=== PATIENT | male | born 1975 | race Caucasian/White ===

== ENCOUNTER 2017-02-28 20:43 | Emergency (ER) | payer OTHER ==
[~2017-02-28] VITALS: Ht 175.3 cm; Wt 84.8 kg
[2017-02-28 20:47] VITALS: TEMP 36.9; Ht 175.3 cm; Wt 84.8 kg
[2017-02-28] MEDS ORDERED: SULF800T23 PO (21:08)
[2017-02-28] MEDS ORDERED: CLIN150C PO (21:08)
[2017-02-28] MEDS ORDERED: SODIUM CHLORIDE 0.9% 1000ML 1,000 ML IV STA (21:14)
[2017-02-28] MEDS ORDERED: LIDOCAINE/EPINEPHRINE 1% 20 ML VIAL INFIL ONE (21:15)
--- NOTE | 2017-02-28 21:32 | EMERGENCY ROOM VISIT NOTE ---
History First contact with patient: 20:55 Chief Complaint: BITE Stated Complaint: SPIDER BITE R LEG History of Present Illness The patient is a 41 year old male who presents to the Emergency Room from [facility] with complaints of right thigh redness, swelling, and pain. He reports the pain is constant, burning, 8/10. He states he has not been given any medications for pain. He states this started approximately 5 days ago as 2 bumps that look like pimples, and has been progressively worsening and this evening the area started to drain pus. Patient states that he was started on antibiotics by the [facility] medical staff yesterday, clindamycin and Bactrim, of which he has had 3 doses so far with no improvement. Patient denies any known spider bite to the area, but states there was a large, hairy spider in his cell that he killed a few days ago. Patient denies any previous history of skin infections, he is a former smoker, and he denies history of IV drug abuse. He does report that he has noticed several other red, painful bumps elsewhere on his body, 2 on his right knee, and a few on his arms. He denies any fevers or chills, headache, nausea or vomiting, chest pain, shortness of breath, abdominal pain, back pain, diarrhea or constipation, blood in his stool, urinary symptoms, swollen lymph nodes. Review of Systems A complete 10 point review of systems was reviewed with the patient with pertinent positives and negatives as per history of present illness. All else were negative. Social History Smoking Status: Former Smoker Current/Historical Medications Scheduled Cephalexin Monohydrate (Keflex), 500 MG PO QID Clindamycin Hcl (Cleocin), 300 MG PO DAILY Sulfa/Trimethoprim (Bactrim Ds 800MG/160MG), 1 TAB PO BID Physical Exam Vital Signs Date Time Temp Pulse Resp B/P (MAP) Pulse Ox O2 Delivery O2 Flow Rate FiO2 03/01/17 00:34 72 16 111/58 96 Room Air 02/28/17 22:50 77 16 118/87 98 Room Air 02/28/17 20:47 36.9 92 18 130/93 100 Room Air Physical Exam CONSTITUTIONAL: No acute distress. Mildly dehydrated, but otherwise well appearing and well nourished. Alert and oriented X 4 with normal affect. HEENT: Normocephalic, atraumatic. Pupils equal, round and reactive to light, EOMI. TMs normal. Pharynx normal. Tacky mucous membranes. NECK: Supple, full active range of motion without discomfort. RESPIRATORY: Clear to auscultation bilaterally with no wheezing, crackles, rhonchi or stridor. Equal expansion bilaterally. CARDIOVASCULAR: Regular rate and rhythm with no murmurs, rubs or gallops. Normal peripheral perfusion. No edema. GASTROINTESTINAL: Soft, nontender, nondistended. Bowel sounds present in all quadrants. MUSCULOSKELETAL: Full range of motion of all joints without discomfort. INTEGUMENTARY: There is a cellulitic area noted on the right anterior and lateral thigh measuring approximately 20 cm in diameter, indurated, erythematous , hot to touch, tender to palpation, with a central area of fluctuance and another adjacent area with scabbing. No palpable crepitus. No drainage noted. There are additional swollen, erythematous areas over the right knee and right forearm with scabs. Again, no drainage noted. NEUROLOGIC: Cranial nerves II-XII grossly intact. No focal neurologic deficits noted. Medical Decision & Procedures ER Provider Diagnostic Interpretation: R KNEE 1 OR 2 VIEWS ROUTINE, R FEMUR 2 VIEWS ROUTINE HISTORY: 41 years-old Male cellulitis acute redness and swelling of the right knee and thigh. Acute cellulitis. COMPARISON: None available TECHNIQUE: 2 views of the right knee and 2 views of the right femur FINDINGS: KNEE: Minimal marginal spurring of the patellofemoral joint and medial compartments. No acute fracture or dislocation. Suspected small joint effusion. Moderate soft tissue swelling about the knee, greatest anteromedially. No opaque foreign body. FEMUR: No acute fracture, dislocation or significant degenerative changes. Probable vascular calcifications within the region of the right scrotum. There is moderate soft tissue swelling about the thigh, greatest laterally. No opaque foreign body. No soft tissue gas. IMPRESSION: 1. Moderate soft tissue swelling about the knee and thigh, greatest anteromedially. No opaque foreign body or soft tissue gas identified. 2. No acute fracture or dislocation. Laboratory Results 02/28/17 21:45 Red Blood Count 4.70, Mean Corpuscular Volume 88.5, Mean Corpuscular Hemoglobin 30.4, Mean Corpuscular Hemoglobin Concent 34.4, Mean Platelet Volume 11.0, Neutrophils (%) (Auto) 70.3, Lymphocytes (%) (Auto) 21.9, Monocytes (%) (Auto) 5.2, Eosinophils (%) (Auto) 2.0, Basophils (%) (Auto) 0.3, Neutrophils # (Auto) 8.17, Lymphocytes # (Auto) 2.54, Monocytes # (Auto) 0.60, Eosinophils # (Auto) 0.23, Basophils # (Auto) 0.03 02/28/17 21:45 Test 02/28/17 21:45 White Blood Count 11.61 K/uL (4.8-10.8) Red Blood Count 4.70 M/uL (4.7-6.1) Hemoglobin 14.3 g/dL (14.0-18.0) Hematocrit 41.6 % (42-52) Mean Corpuscular Volume 88.5 fL (80-100) Mean Corpuscular Hemoglobin 30.4 pg (25-34) Mean Corpuscular Hemoglobin Concent 34.4 g/dl (32-36) Platelet Count 197 K/uL (130-400) Mean Platelet Volume 11.0 fL (7.4-10.4) Neutrophils (%) (Auto) 70.3 % Lymphocytes (%) (Auto) 21.9 % Monocytes (%) (Auto) 5.2 % Eosinophils (%) (Auto) 2.0 % Basophils (%) (Auto) 0.3 % Neutrophils # (Auto) 8.17 K/uL (1.4-6.5) Lymphocytes # (Auto) 2.54 K/uL (1.2-3.4) Monocytes # (Auto) 0.60 K/uL (0.11-0.59) Eosinophils # (Auto) 0.23 K/uL (0-0.5) Basophils # (Auto) 0.03 K/uL (0-0.2) RDW Standard Deviation 40.9 fL (36.4-46.3) RDW Coefficient of Variation 12.7 % (11.5-14.5) Immature Granulocyte % (Auto) 0.3 % Immature Granulocyte # (Auto) 0.04 K/uL (0.00-0.02) Anion Gap 8.0 mmol/L (3-11) Est Creatinine Clear Calc Drug Dose 88.6 ml/min Estimated GFR () 95.4 Estimated GFR (Non- 82.3 BUN/Creatinine Ratio 10.2 (10-20) Lactic Acid Level 1.7 mmol/L (0.4-2.0) Calcium Level 9.3 mg/dl (8.5-10.1) Total Bilirubin 0.3 mg/dl (0.2-1) Direct Bilirubin < 0.1 mg/dl (0-0.2) Aspartate Amino Transf (AST/SGOT) 14 U/L (15-37) Alanine Aminotransferase (ALT/SGPT) 30 U/L (12-78) Alkaline Phosphatase 83 U/L (45-117) Total Protein 8.5 gm/dl (6.4-8.2) Albumin 4.1 gm/dl (3.4-5.0) Medications Administered Medications (Trade) Dose Ordered Sig/Sarah Route Start Time Stop Time Status Last Admin Dose Admin Sodium Chloride 1,000 ml @ 999 mls/hr Q1H1M STAT IV 02/28/17 21:14 02/28/17 22:14 DC 02/28/17 21:14 999 MLS/HR Morphine Sulfate (MoRPHine SULFATE INJ) 4 mg NOW STAT IV 02/28/17 23:07 02/28/17 23:08 DC 02/28/17 23:21 4 MG Ceftriaxone Sodium (Rocephin Inj) 1 gm NOW STAT IV 02/28/17 23:44 02/28/17 23:47 DC 02/28/17 23:59 1 GM Cephalexin Monohydrate (Keflex 500MG Home Pack) 1 homepack NOW ONCE PO 02/28/17 23:45 02/28/17 23:47 DC 02/28/17 23:59 1 HOMEPACK Trimethoprim/ Sulfamethoxazole (Septra Ds 800/ 160MG Tab) 1 tab NOW STAT PO 02/28/17 23:44 02/28/17 23:47 DC 02/28/17 23:59 1 TAB Procedure I obtained verbal consent from the patient to perform the procedure. The area was cleansed using sterile saline and Betadine. The area was anesthetized using 1% lidocaine with epinephrine. After appropriate anesthesia was achieved , and utilizing sterile technique, the abscess cavity was incised with a number 11 scalpel blade. A moderate amount of purulent, bloody material drained and more was expressed. A wound culture was collected and sent to the lab. The abscess cavity was further probed with hemostats, with additional purulent drainage expressed. The wound was irrigated copiously with sterile saline under pressure. Packing with iodoform gauze was placed within the wound, bacitracin and a sterile gauze dressing was applied. Hemostasis was achieved. Patient tolerated the procedure well with no known complications. Medical Decision CC: Patient presenting with complaint of right thigh cellulitis Interpretation of Labs: Mild leukocytosis with left shift, no anemia, no significant electrolyte abnormalities, normal renal function, normal liver enzymes, normal lactic acid level. Differential Diagnosis: Includes, but not limited to abscess, cellulitis, spider bite, necrotizing fasciitis, sepsis/bacteremia, dehydration, among others. Medication Reconciliation: I attest that I have personally reviewed the patient' s current medication list. Vital signs review: I reviewed the patient's vital signs and interpret them as follows: T: Afebrile; BP: Hypertensive; HR: Mildly tachycardic; RR: Within normal limits; Pulse Ox: Within normal limits on room air. Blood pressure screening: The patient was found to have an elevated blood pressure, this improved after treatment and was felt to be situational secondary to pain. Summary: Patient was evaluated at bedside, history of physical exam performed. Patient is alert and oriented, in no acute distress but does appear to be in some pain. He is handcuffed to the stretcher with 2 guards on duty. Patient complains of 8/10 pain and does appear uncomfortable, but does not appear to have pain out of proportion to his exam findings. There is a cellulitic area on the right anterior/lateral thigh, erythematous, hot to touch, tender to palpation, with some central fluctuance. The area of cellulitis was marked with a skin marker. Orders were placed at bedside for labs, lactic acid, UA, blood cultures, IV fluids for hydration, x-ray of thigh and knee to evaluate for evidence of soft tissue gas. Patient discussed with Dr. Pavon, who agrees with my assessment and plan. Labs reviewed as above, mild leukocytosis, no other acute abnormalities. Imaging reviewed and concerning findings for soft tissue gas to suggest necrotizing fasciitis. Soft tissue swelling consistent with cellulitic changes. Incision and drainage was performed, and culture sent. IV Rocephin was ordered and given after all cultures were collected. The patient was much improved after I&D procedure, and cellulitis has retracted from the original skin markings and also appears to be improving. Patient was felt to be stable for discharge, he will return to [facility], where he does have access to medical care. The patient was instructed on concerning signs/symptoms to monitor for worsening infection, he verbalized understanding. The patient was also instructed to follow-up with the medical provider tomorrow , and his packing should be removed in 2 days. Patient was instructed to continue taking the Bactrim, stop taking the clindamycin, and start taking Keflex, Rx for the Keflex was provided. The patient was discharged in the custody of two 2 guards in stable condition and ambulatory. Medication Reconcilliation Current Medication List: was personally reviewed by me Blood Pressure Screening Patient's blood pressure: Elevated blood pressure Blood pressure disposition: Elevated BP felt to be situational Impression Primary Impression: Cellulitis of right thigh Additional Impression: Abscess of right thigh Departure Information Dispostion Home / Self-Care Condition GOOD Prescriptions Cephalexin Monohydrate (Keflex) 500 Mg Cap 500 MG PO QID for 10 Days, #40 CAP Prov: Tamika Osman CRNP 03/01/17 Referrals [facility] (PCP) Patient Instructions ED Abscess IandD, ED Infec Skin Cellulitis, [facility] Additional Instructions You were seen in the Emergency Department for Incision and Drainage of the abscess on your right thigh. You were also treated for cellulitis. You will NEED to return to have the packing removed/changed in 48 hours. This packing is NOT dissolvable and WILL need to be removed by a health care provider. Try to leave the packing in place for the full 48 hours before having this removed by your health care provider. You were prescribed Keflex to be taken 4 times a day for 10 days. You should STOP taking the clindamycin. You should continue taking the Bactrim twice a day for a full 10 days. These medications are antibiotics to treat your infection. Stop these medications and contact a medical provider if you were to develop any significant adverse side effects including: wheezing, shortness of breath, passing out, vomiting, or a diffuse rash. Always take antibiotics as directed and COMPLETE the ENTIRE course regardless of the improvement of your symptoms. Proper wound care is essential for adequate wound healing and infection prevention. You can shower and clean the wound with soap and water. Do not scour over the wound. Pat dry with a towel. Do not submerse the wound (i.e. bathe or dish wash) until the sutures have been removed. You can use an antibiotic ointment with a dressing over the wound for the next 3-4 days. After this time you may leave the wound dry and open to the air. If crust develops over the wound you can use a Q-tip to apply a 1:1 peroxide:water solution to clean the wound. Apply warm compresses to the area to help with pain and also to help improve the infection. Look for signs of worsening infection of the wound including: increased pain, swelling, foul discharge, streaking, swollen lymph nodes in your groin, or fevers/chills. If any of these are noticed you should return to the Emergency Department for further assessment and treatment. As with any laceration you may have received nerve damage to the surrounding tissues. This damage may or may not be permanent. For pain control, you can use the following [id number] medicines (if >12 yo): - Extra strength (500mg/tab) Tylenol (acetaminophen) 1-2 tabs every 6-8 hours as needed. Do not exceed 6 tablets in a 24 hour period. Avoid taking more than 3 grams (3000 mg) of Tylenol per day. This includes any other sources of acetaminophen you may take on a regular basis. - Regular strength (200 mg/tab) Advil (ibuprofen) 1-2 tabs every 4-6 hours as needed. Do not exceed a dose of 2400 mg per day. Return to the emergency department if your symptoms worsen despite treatment course outlined above. Problem Qualifiers
[2017-02-28 22:03] LABS: BASO % 0.3 %; BASO ABS # 0.03 K/uL (0-0.2); COMPLETE YES; HEMATOCRIT 41.6 % (42-52); IG% 0.3 %; LYMPH % 21.9 %; LYMPH ABS # 2.54 K/uL (1.2-3.4); MEAN CELL VOLUME 88.5 fL (80-100); MEAN CORPUSCULAR HEMOGLOBIN 30.4 pg (25-34); MEAN CORPUSCULAR HGB CONC 34.4 g/dl (32-36); MONO % 5.2 %; NEUT % 70.3 %; PLATELET COUNT 197 K/uL (130-400); WHITE BLOOD COUNT 11.61 K/uL (4.8-10.8)
--- NOTE | 2017-02-28 22:39 | DIAGNOSTIC IMAGING REPORT ---
R KNEE 1 OR 2 VIEWS ROUTINE, R FEMUR 2 VIEWS ROUTINE HISTORY: 41 years-old Male cellulitis acute redness and swelling of the right knee and thigh. Acute cellulitis. COMPARISON: None available TECHNIQUE: 2 views of the right knee and 2 views of the right femur FINDINGS: KNEE: Minimal marginal spurring of the patellofemoral joint and medial compartments. No acute fracture or dislocation. Suspected small joint effusion. Moderate soft tissue swelling about the knee, greatest anteromedially. No opaque foreign body. FEMUR: No acute fracture, dislocation or significant degenerative changes. Probable vascular calcifications within the region of the right scrotum. There is moderate soft tissue swelling about the thigh, greatest laterally. No opaque foreign body. No soft tissue gas. IMPRESSION: 1. Moderate soft tissue swelling about the knee and thigh, greatest anteromedially. No opaque foreign body or soft tissue gas identified. 2. No acute fracture or dislocation. The above report was generated using voice recognition software. It may contain grammatical, syntax or spelling errors. Electronically signed by: William Qureshi M.D. 02/28/2017 10:38 PM Dictated Date/Time: 02/28/2017 10:35 PM
[2017-02-28] MEDS ORDERED: MoRPHine SULFATE 4 MG/ML 1 ML CARP\\VIAL IV STA (23:07)
[2017-02-28 23:31] LABS: ALKALINE PHOSPHATASE 83 U/L (45-117); ALT/SGPT 30 U/L (12-78); BLOOD UREA NITROGEN 11 mg/dl (7-18); BUN/CREATININE RATIO 10.2 (10-20); CALCIUM 9.3 mg/dl (8.5-10.1); CARBON DIOXIDE 29 mmol/L (21-32); CHLORIDE 103 mmol/L (98-107); CREATININE 1.12 mg/dl (0.60-1.40); GLUCOSE 88 mg/dl (70-99)
[2017-02-28] MEDS ORDERED: CEFTRIAXONE SOD INJ 1 GM ADDVIAL IV STA (23:44)
[2017-02-28] MEDS ORDERED: SULFAMETHOXAZOLE/TRIMETHOPRIM DS 800/160MG TAB PO STA (23:44)
[2017-02-28] MEDS ORDERED: CEPHALEXIN 500MG HOME PACK 1 EA BTL PO ONE (23:45)
[2017-02-28 23:51] LABS: AST/SGOT 14 U/L (15-37); POTASSIUM 4.3 mmol/L (3.5-5.1); SODIUM 140 mmol/L (136-145)
[2017-03-01] MEDS ORDERED: CEPH500C PO (00:16)
[2017-03-01 00:34] VITALS: BP 111/58; PULSE 72; O2SAT 96
== END 2017-03-01 00:43 | disposition home or self-care (01) ==
LOC: C.EDB 20:45 → C.EDC 03-01 00:43
DX: L03.115 Cellulitis of right lower limb (principal); L02.415 Cutaneous abscess of right lower limb; Z87.891 Personal history of nicotine dependence